=== PATIENT | male | born 1980 | race Caucasian/White ===

== ENCOUNTER 2023-02-15 17:54 | Emergency (ER) | payer OTHER, SELFPAY ==
--- NOTE | 2023-02-15 18:14 | ED.GENADULT ---
HPI - General Adult General Chief complaint: Skin/Abscess/Foreign Body Stated complaint: rash,swollen legs Time Seen by Provider: 02/15/23 18:15 Source: patient Mode of arrival: ambulatory Limitations: no limitations History of Present Illness HPI narrative: 42-year-old male patient presents to the [facility] with complaints of a rash to bilateral lower legs for the past week. Patient states he has came into contact with some poison ernie and has been using some calamine lotion to help with the itching. Patient states has gotten significantly worse and spreading. Patient notices some scabbing areas to bilateral lower legs. Denies any shortness of breath, chest pain, throat pain or any difficulty breathing. Patient states he did take some Benadryl last night for the itching. Related Data Allergies Allergy/AdvReac Type Severity Reaction Status Date / Time No Known Allergies Allergy Verified 02/15/23 18:24 Review of Systems Review of Systems: CONSTITUTIONAL: Denies fever, chills, or sweats. EYES: Denies visual changes, redness, or discharge. ENT: Denies rhinorrhea, congestion, sore throat, or otalgia. CARDIOVASCULAR: Denies chest pain, palpitations, or edema. RESPIRATORY: Denies cough or dyspnea. GASTROINTESTINAL: Denies abdominal pain, nausea, vomiting, or diarrhea. GENITOURINARY: Denies dysuria or hematuria. SKIN: Positive rash or itching to bilateral lower legs x1 week MUSCULOSKELETAL: Denies back pain, joint pain, or myalgia. NEUROLOGIC: Denies headache, numbness, or weakness. PSYCHIATRIC: Denies anxiety or depression. 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 HEAD: Normocephalic, atraumatic. EYES: PERRLA and EOMI. ENT: Nares clear, no rhinorrhea or epistaxis. Mucous membranes moist. NECK: Supple. No lymphadenopathy CHEST: Clear to auscultation. No respiratory distress. HEART: Regular rate and rhythm. No murmur heard. Normal peripheral pulses. ABDOMEN: Soft, nontender, nondistended, normal active bowel sounds. EXTREMITIES: Normal range of motion. No edema. SKIN: patient does have a rash noted to bilateral lower legs. The left leg towards the medial side of the knee does have a large scabbed area ill with warmth noted it does appear to have some yellow serous in [place] drainage. This scabbed areas measured approximately 5 cm x 5 cm. There is another smaller scabbed area to the medial calf on the right leg measuring approximately 2 cm x 3 cm with warmth to the area as well. Noticeable swelling to bilateral feet. NEURO: No focal deficits. Alert and oriented x3. Course Course Level of Care: Express Care Visit Vital Signs Vital signs: Vital Signs Temperature 36.6 C 02/15/23 18:15 Pulse Rate 77 02/15/23 18:15 Respiratory Rate 18 02/15/23 18:15 Blood Pressure 120/84 02/15/23 18:15 Pulse Oximetry 100 02/15/23 18:15 Oxygen Delivery Room Air 02/15/23 18:15 Temperature 36.6 C 02/15/23 18:15 Pulse Rate 77 02/15/23 18:15 Respiratory Rate 18 02/15/23 18:15 Blood Pressure 120/84 02/15/23 18:15 Pulse Oximetry 100 02/15/23 18:15 Oxygen Delivery Room Air 02/15/23 18:15 Vital signs reviewed Medical Decision Making MDM Narrative Medical decision making narrative: Discussed with patient that we will disch
[2023-02-15 18:15] VITALS: BP 120/84; PULSE 77; RESP 18; TEMP 36.6; O2SAT 100
== END 2023-02-15 18:35 | disposition home or self-care (01) ==
PROVIDERS: Emergency Provider Nurse Practitioner Family
DX: L25.5 Unspecified contact dermatitis due to plants, except food (principal); L03.116 Cellulitis of left lower limb; L03.115 Cellulitis of right lower limb; F17.210 Nicotine dependence, cigarettes, uncomplicated
CPT/HCPCS: 99213; G0463